=== PATIENT | female | born 1990 | race Caucasian/White ===

== ENCOUNTER 2024-08-19 15:53 | Inpatient (IN) | payer OTHER, SELFPAY ==
[2024-08-19] VITALS (15 sets, daily range): BP systolic 103–122; BP diastolic 62–79; PULSE 70–88; TEMP 36.4–36.6; BMI 36.3
--- NOTE | 2024-08-19 16:34 | LDADM ---
This patient, Macie Young, was admitted to Labor/Delivery/Recovery 103 on 08/19/24 at 15:53. Plans for labor, pain management and were discussed with patient. Patient/family oriented to hospital policies and general routines including ID bracelet, bed and alarms, visiting hours, pain management, procedures, bathroom and other care routines, personal items, smoking policy, room service/diet and guest tray routines, security routines, and visiting hours. Patient/Family are encouraged to report perceived risks to care and to ask questions if they do not understand what they are told or what they should do. See OBIX for further documentation.
--- NOTE | 2024-08-19 17:36 | P.PNAN_ITS ---
Anes - Eval Pre Procedure Procedure: labor epidural Date/Time: 08/19/24 17:36 Surgeon: nel Preop Diagnosis: pain during labor Pre Op Diagnosis: IOL Patient Data Age: 33 Gender: F Height: 1.68 m Weight: 102 kg Last Vital Signs Temp 36.4 C 08/19/24 17:15 Pulse 88 08/19/24 17:31 BP 112/76 08/19/24 17:31 O2 Del Method Room Air 08/19/24 16:33 Allergies Allergy/AdvReac Type Severity Reaction Status Date / Time fluconazole Allergy Rash Verified 07/28/24 13:18 Home Medications Medication Instructions Recorded Confirmed Type vits no.126-ferrous fum 1 tablet PO DAILY 07/28/24 07/28/24 History 28 mg iron-folic acid 800 mcg tablet (Classic ) valacyclovir 500 mg tablet 500 mg PO DAILY 07/28/24 07/28/24 History (Valtrex) Patient hx anesthesia problems: none Family hx anesthesia problems: none Results Review: All pre-operative results and documents have been reviewed as part of the pre- operative evaluation. COUNTS INCLUDE 234 BEDS AT THE [facility] Past Medical History Medical History (Updated 08/19/24 @ 17:37 by Rhonda Stewart CRNA) FH: migraines HSV (herpes simplex virus) anogenital infection IUP (intrauterine ), incidental Obesity (BMI 30-39.9) Family History Family History (Updated 07/28/24 @ 13:27 by Kenna Davila RN) Other No pertinent family history Social History Social History Smoking status: Never smoker Substance use: never Do You Feel Safe in your Home?: Yes Lack of Transportation: No Lack of Food: Never True Current Housing: I Have Housing Concerned About Future Housing: No Difficulty Paying Gas/Electric Bills: No Difficulty Paying for Meds: No Currently Unemployed: No Education: Don't Know Difficulty w/ Childcare or Family Care: No Spiritual care concerns: No Exam Day of Procedure 08/19/24 17:36
[2024-08-19 18:08] LABS: Basophils Percent Auto 0.3 % (0.2-1.2); Eosinophils Absolute Auto 0.1 K/mm3 (0-0.3); Eosinophils Percent Auto 0.6 % (0-4.4); Hematocrit 34.4 % (37.0-47.0); Hemoglobin 11.7 g/dL (12.0-15.0); Immature Granulocyte Absolute 0.06 K/mm3 (0.00-0.031); Immature Granulocyte Percent A 0.6 % (0-0.5); Lymphocytes Absolute Auto 1.79 K/mm3 (0.9-3.2); Lymphocytes Percent Auto 16.7 % (18.3-44.2); Mean Corpuscular Volume 85.4 fl (80-100); Mean Platelet Volume 10.1 fl (7.4-10.4); Monocytes Absolute Auto 0.6 K/mm3 (0.1-0.6); Monocytes Percent Auto 5.8 % (2.6-8.5); Neutrophils Absolute Auto 8.2 K/mm3 (1.3-6.7); Platelet Count Result 259 k/mm3 (150-375); Red Blood Count 4.03 M/mm3 (4.2-5.4); Red Cell Distribution Width 13.3 % (11.5-14.5); White Blood Count 10.7 K/mm3 (4.5-10.0)
[2024-08-19] MEDS: DINOPROSTONE 10 MG VAG INSERT VAGINAL (18:33)
[2024-08-19 18:59] LABS: HIV 1/2 Ab P24 Ag Result Negative (Negative)
[2024-08-19 19:07] LABS: Rapid Plasma Reagin Non-Reactive (NonReactive)
[2024-08-20] VITALS (210 sets, daily range): BP systolic 85–150; BP diastolic 44–93; PULSE 67–147; TEMP 36.2–37; O2SAT 92–100
[2024-08-20] MEDS: LACTATED RINGERS 1,000 ML 125 ML IV CONT (05:39)
[2024-08-20] MEDS: OXYTOCIN 30 UNITS/NS 500 ML 30 UNITS/500 ML BAG 6 UNITS IV CONT (05:41)
[2024-08-20] MEDS: LACTATED RINGERS 1,000 ML 999 ML IV CONT ×3 (09:38→16:04)
--- NOTE | 2024-08-20 12:05 | PM.IMHP ---
H&P: HPI History of Present Illness Date/Time: 08/20/24 0720 Chief Complaint: Here for induction of labor. Narrative: 33 y/o G1 at 40 3/7 weeks here for scheduled induction of labor. Cervidil last night, has been withdrawn, She is receiving oxytocin. GBS neg. has a history of genital HSV, but Macie has never had a sore. essentially uncomplicated. Review of Systems Review of Systems: All systems reviewed & are unremarkable except as noted in HPI and below PMFSH Past Medical History Medical History FH: migraines HSV (herpes simplex virus) anogenital infection IUP (intrauterine ), incidental Obesity (BMI 30-39.9) Family History Family History Other No pertinent family history Social History Social History Smoking status: Never smoker Substance use: never Do You Feel Safe in your Home?: Yes Lack of Transportation: No Lack of Food: Never True Current Housing: I Have Housing Concerned About Future Housing: No Difficulty Paying Gas/Electric Bills: No Difficulty Paying for Meds: No Currently Unemployed: No Education: Don't Know Difficulty w/ Childcare or Family Care: No Spiritual care concerns: No Meds Home Medications and Allergies Home Medications Medication Instructions Recorded Confirmed Type vits no.126-ferrous fum 1 tablet PO DAILY 07/28/24 07/28/24 History 28 mg iron-folic acid 800 mcg tablet (Classic ) valacyclovir 500 mg tablet 500 mg PO DAILY 07/28/24 07/28/24 History (Valtrex) Allergies Allergy/AdvReac Type Severity Reaction Status Date / Time fluconazole Allergy Rash Verified 07/28/24 13:18 Vital Signs Vital Signs - 24 hr 08/19/24 16:33 08/19/24 17:15 08/19/24 17:29 Temperature 36.4 C Pulse Rate 78 Blood Pressure 115/75 Pulse Oximetry Oxygen Delivery Room Air 08/19/24 17:31 08/19/24 17:45 08/19/24 18:01 Temperature Pulse Rate 88 82 79 Blood Pressure 112/76 118/74 106/63 Pulse Oximetry Oxygen Delivery 08/19/24 18:15 08/19/24 18:45 08/19/24 19:00 Temperature Pulse Rate 79 79 71 Blood Pressure 103/68 108/75 118/76 Pulse Oximetry Oxygen Delivery 08/19/24 19:15 08/19/24 19:31 08/19/24 19:45 Temperature Pulse Rate 70 75 75 Blood Pressure 121/79 113/67 120/78 Pulse Oximetry Oxygen Delivery 08/19/24 20:01 08/19/24 20:16 08/19/24 20:31 Temperature Pulse Rate 75 75 77 Blood Pressure 122/75 120/78 108/62 Pulse Oximetry Oxygen Delivery 08/19/24 20:00 08/20/24 00:31 08/20/24 04:59 Temperature 36.6 C Pulse Rate 79 89 Blood Pressure 119/70 131/72 Pulse Oximetry Oxygen Delivery 08/20/24 05:31 08/20/24 06:01 08/20/24 06:31 Temperature Pulse Rate 78 75 83 Blood Pressure 127/77 123/73 112/74 Pulse Oximetry Oxygen Delivery 08/20/24 07:01 08/20/24 07:31 08/20/24 07:30 Temperature 36.4 C Pulse Rate 87 85 Blood Pressure 116/85 121/79 Pulse Oximetry Oxygen Delivery 08/20/24 08:01 08/20/24 08:31 08/20/24 09:00 Temperature Pulse Rate 90 95 88 Blood Pressure 119/78 126/78 130/91 H Pulse Oximetry Oxygen Delivery 08/20/24 09:31 08/20/24 10:00 08/20/24 09:34 Temperature 36.9 C Pulse Rate 86 81 Blood Pressure 109/74 119/86 Pulse Oximetry Oxygen Delivery 08/20/24 10:31 08/20/24 10:41 08/20/24 10:45 Temperature Pulse Rate 79 91 Blood Pressure 116/67 129/83 Pulse Oximetry 100 Oxygen Delivery 08/20/24 10:46 08/20/24 10:47 08/20/24 10:48 Temperature Pulse Rate 83 82 Blood Pressure 120/78 122/84 Pulse Oximetry 100 Oxygen Delivery 08/20/24 10:50 08/20/24 10:51 08/20/24 10:53 Temperature Pulse Rate 87 89 Blood Pressure 130/84 132/84 Pulse Oximetry 100 Oxygen Delivery 08/20/24 10:56 11/21/24 10:58 08/20/24 11:01 Temperature Pulse Rate 89 84 81 Blood Pressure 117/73 121/73 117/71 Pulse Oximetry 100 99 Oxygen Delivery 08/20/24 11:03 08/20/24 11:06 08/20/24 11:08 Temperature Pulse Rate 83 91 89 Blood Pressure 114/72 100/60 99/64 L Pulse Oximetry 100 92 Oxygen Delivery 08/20/24 11:10 08/20/24 11:13 08/20/24 11:16 Temperature Pulse Rate 81 77 73 Blood Pressure 104/64 112/70 114/66 Pulse Oximetry 97 Oxygen Delivery 08/20/24 11:18 08/20/24 11:21 08/20/24 11:23 Temperature Pulse Rate 88 73 77 Blood Pressure 129/63 108/66 108/70 Pulse Oximetry 98 96 Oxygen Delivery 08/20/24 11:26 08/20/24 11:29 08/20/24 11:30 Temperature Pulse Rate 74 87 Blood Pressure 105/68 100/68 Pulse Oximetry 100 Oxygen Delivery 08/20/24 11:31 08/20/24 11:34 08/20/24 11:35 Temperature Pulse Rate 77 80 Blood Pressure 105/70 101/68 Pulse Oximetry 100 Oxygen Delivery 08/20/24 11:36 08/20/24 11:38 08/20/24 11:33 Temperature 36.2 C L Pulse Rate 73 80 Blood Pressure 101/67 101/65 Pulse Oximetry Oxygen Delivery 08/20/24 11:40 08/20/24 11:41 08/20/24 11:45 Temperature Pulse Rate 68 Blood Pressure 99/68 L Pulse Oximetry 99 100 Oxygen Delivery 08/20/24 11:50 08/20/24 11:51 08/20/24 11:55 Temperature Pulse Rate 101 H Blood Pressure 85/64 L Pulse Oximetry 100 99 Oxygen Delivery 08/20/24 12:00 08/20/24 12:05 08/20/24 09:12 Temperature Pulse Rate 80 Blood Pressure 105/63 Pulse Oximetry 100 100 Oxygen Delivery Room Air Exam Const: Orientation/consciousness: patient oriented x3 Other: Well-developed, well-nourished female in no acute distress. Neck: Thyroid: thyroid normal Lymphatic: no lymphadenopathy noted (in neck, axilla or inguinal nodes) Resp: Effort & Inspection: normal respiratory effort Auscultation: clear to auscultation bilaterally Cardio: Rate: regular rate Rhythm: regular rhythm Heart sounds: S1 normal heart sound present and S2 normal heart sound present GI: Other: ABD: Soft, nontender, nondistended, gravid. NST reactive. TOCO: irregular contractions. No guarding or rebound tenderness. No hepatosplenomegaly. : General: Yes no CVA tenderness Other: Cervix 2-3/50/-2. AROM with clear fluid. Vertex. IUPC placed. Back/Spine/Pelvis: Back: no CVA tenderness Skin: General skin exam: normal color and no rashes or lesions noted Neuro: General: patient oriented x3 Extrem: Other: Extremities: nontender with no edema Psych: Mental Status: mental status grossly normal Affect: normal affect H&P: Results Labs Labs: Short CBC 08/19/24 Range/Units 16:08 WBC 10.7 H (4.5-10.0) K/mm3 Hgb 11.7 L (12.0-15.0) g/dL Hct 34.4 L (37.0-47.0) % Plt Count 259 (150-375) k/mm3 Assessment and Plan Assessment and plan (1) Term : Code(s): Z34.90 - Encounter for supervision of normal , unspecified, unspecified trimester Status: Acute Assessment and Plan: A: IUP at 40 3/7 weeks. P: She desires induction of labor. Oxytocin. Anticipate .
--- NOTE | 2024-08-20 12:10 | PM.OBPNLAB ---
Pain Control Date/time seen: 08/20/24 12:10 Comfortable with epidural. AVSS NST reactive TOCO: contractions every 2-4 min Cervix /-2. Continue labor.
[2024-08-20] MEDS: SODIUM CHLORIDE 0.9% IV 300 ML 600 ML I-UTERINE (13:43)
[2024-08-20] MEDS: PHENYLEPHRINE 1,000 MCG/10 ML SYRINGE 100 MCG IV PUSH (15:56)
--- NOTE | 2024-08-20 17:26 | PM.OBPNLAB ---
Pain Control Date/time seen: 08/20/24 17:26 Comfortable AVSS NST reactive TOCO: contractions every 2-3 min Cervix /-2 Continue labor.
[2024-08-20] MEDS: ONDANSETRON INJ 4 MG/2 ML VIAL IV PUSH (19:26)
--- NOTE | 2024-08-20 20:20 | PM.OBPNLAB ---
Pain Control Date/time seen: 08/20/24 20:20 Feeling pressure. Pushing well. AVSS NST reactive with mild variables with pushing. TOCO: contractions every 2-3 min Cervix C/+2 Continue pushing.
[2024-08-20] MEDS: LIDOCAINE HCL 1% LOCAL INJ 20 ML VIAL INFILTRATE (21:07)
[2024-08-20] MEDS: fentaNYL CITRATE INJ (*CRX) 100 MCG/2 ML VIAL IV PUSH (21:19)
[2024-08-20] MEDS: OXYTOCIN 30 UNITS/NS 500 ML 30 UNITS/500 ML BAG 125 UNITS IV CONT (21:20)
--- NOTE | 2024-08-20 21:36 | PM.OBPRVD ---
OB - Vaginal Delivery Note Procedure Delivery date: 08/20/24 Events: Elective Induction of Labor Induction method: Per Cervidil Protocol Delivery augmentation: Rupture of Membranes and Pitocin Delivery monitor: External FHT, External Uterine and Internal Uterine Route of delivery: Episiotomy description: None Laceration Description: Perineal - 2nd Degree Delivery repair: vicryl (3-0) Specimen: Yes (cord blood, vulvar skin mole) Quantitative Blood Loss (ml): 310 Anesthesia type: Local (1% lidocaine) Disposition: PACU Complications: None Narrative: 33 y/o G1 at 40 3/7 weeks gestation who presented to the hospital for induction of labor. Cervidil was placed overnight, then withdrawn the next morning. Oxytocin was administered intravenously. Amniotomy was performed with return of clear fluid. She received an epidural for pain control. Her labor progressed and her cervix dilated completely. She pushed with good effort and delivered the infant's head to the perineum. A loose nuchal cord was reduced and the body delivered. The nose and mouth were bulb suctioned. After a delay, the cord was clamped and cut. The infant was handed off the field. Cord blood was collected. The placenta delivered spontaneously and was grossly normal in appearance. The usual 3 vessel cord was noted. A second degree midline perineal laceration was sustained. This was infiltrated with 10 mL 1% lidocaine for additional analgesia, and reapproximated using 3 0 Vicryl in the usual layered fashion. An 8mm x 6mm flesh colored raised nevus on the right vulva was infiltrated with 1mL 1% lidocaine and excised sharply and passed off to be sent to pathology. A single interrupted suture of the same material was used to reapproximate the wound edges. Excellent hemostasis resulted as did excellent reapproximation of the normal anatomy. Needle and instrument counts were correct. The patient was taken to recovery room in stable condition. The went to the nursery in stable condition. I was present and scrubbed for the entire delivery. Baby Date of : 08/20/24 Time of : 20:59 Gestational Age by Date: 40 gender: Male Weight (pounds): 8 Weight (ounces): 5 presentation: vertex position: Right Occiput Anterior Placenta delivery description: Spontaneous and Normal Configuration Cord Vessel Description: 3 Vessels, Nuchal Cord (x1) and Delayed Cord Clamping score one minute: 8 score five minutes: 8
--- NOTE | 2024-08-20 21:41 | PM.OBDSVD ---
DS: Admitting Diagnosis Discharge Date 08/22/24 <Luisa Flores MD - Last Filed: 08/22/24 11:02> Admitting Diagnosis IUP at 40 3/7 weeks <Damion Heller MD - Last Filed: 08/25/24 04:12> DS: Discharge Diagnosis Discharge Diagnosis (1) (normal spontaneous vaginal delivery): Code(s): O80 - Encounter for full-term uncomplicated delivery <Damion Heller MD - Last Filed: 08/25/24 04:12> Status: Acute <Damion Heller MD - Last Filed: 08/25/24 04:12> OB - DS: Summary OB Procedures : None <Damion Heller MD - Last Filed: 08/25/24 04:12> OB Procedures Intrapartum: Spontaneous Vag Delivery <Damion Heller MD - Last Filed: 08/25/24 04:12> OB Procedures: : None <Damion Heller MD - Last Filed: 08/25/24 04:12> Peripartum Data Laceration Description: Perineal - 2nd Degree <Damion Heller MD - Last Filed: 08/25/24 04:12> Episiotomy description: None <Damion Heller MD - Last Filed: 08/25/24 04:12> Time Spent with Patient Time attestation: Total time spent providing and/or coordinating discharge services: <Damion Heller MD - Last Filed: 08/25/24 04:12> Discharge Plan Discharge Attending physician on discharge: Damion Heller <Damion Heller MD - Last Filed: 08/25/24 04:12> Damion Heller <Luisa Flores MD - Last Filed: 08/22/24 11:02> Consulting providers: Rhonda Stewart; Lupillo Kaur <Damion Heller MD - Last Filed: 08/25/24 04:12> Discharging Clinician: Luisa Flores <Damion Heller MD - Last Filed: 08/25/24 04:12> Luisa Flores <Luisa Flores MD - Last Filed: 08/22/24 11:02> Patient Disposition: Home, Self-Care <Damion Heller MD - Last Filed: 08/25/24 04:12> Activity: pelvic rest <Damion Heller MD - Last Filed: 08/25/24 04:12> pelvic rest <Luisa Flores MD - Last Filed: 08/22/24 11:02> Diet: regular <Damion Heller MD - Last Filed: 08/25/24 04:12> regular <Luisa Flores MD - Last Filed: 08/22/24 11:02> Discharge Instructions: Education: Mom and Baby Guide Given to: Mother Follow-Up: Call your delivering provider's office for an appointment to be seen in: 6 Weeks Mom should come to the [facility] for the follow-up appointment. Appointment Date/Time: August 24, 2024 at 10:00 am What to expect at your follow-up visit: Blood Pressure Check Physical Assessment Call [phone] if you are unable to keep your appointment time. BREAST CARE: * Wear a snug supportive bra. * For engorgement discomfort: Breast Feeding: * Apply warm moist washcloths * Express milk as needed to relieve engorgement * Wear loose clothing Bottle Feeding: * May apply ice packs * For sore nipples: * Identify correct latch-on * Apply warm moist washcloths before and after nursing * Air dry nipples after nursing * May apply Lansinoh cream to nipples PERINEAL CARE: * Until bleeding stops, use your samanta bottle after urinating * Change your pad frequently throughout the day * You may take sitz baths several times a day (fill your bathtub with warm water and soak for 20 minutes.) Do NOT bathe in the water * No tub baths until seen by your physician - You may shower ACTIVITY: * Rest as much as possible. * Do not exercise or lift anything heavier than your baby (such as laundry or other children.) * Avoid stairs or driving as much as possible. * Do not put anything into the vagina. No douching, tampons, or sexual activity until seen by physician. NOTIFY PHYSICIAN IF YOU HAVE ANY QUESTIONS OR IF ANY OF THE FOLLOWING SYMPTOMS OCCUR: * If your vaginal bleeding becomes foul smelling. * If your vaginal bleeding becomes more heavy than a period or if your bleeding changes from pink to bright red. However, you may pass an occasional walnut-sized clot once or twice for the first week . * If you experience a sharp, shooting pain in your calves. * If you discover a hard, reddened area on your breast or if you experience flu-like symptoms. DIET: * Eat regular, well-balanced meals. * Drink plenty of fluids daily. If , drink to thirst. Call or return if temperature above 100.4? F, increased abdominal pain, increased vaginal bleeding or any new problems. <Damion Heller MD - Last Filed: 08/25/24 04:12> Stand Alone Forms: General Discharge Information <Damion Heller MD - Last Filed: 08/25/24 04:12> Follow-up/Referrals: Damion Heller MD [Physician] - 6 Weeks <Damion Heller MD - Last Filed: 08/25/24 04:12> Discharge Medications: New ibuprofen 600 mg tablet 600 mg PO Q6H PRN (Reason: cramps) Qty: 30 0RF ferrous sulfate 325 mg (65 mg iron) tablet 325 mg PO DAILY Qty: 30 0RF Continued Classic 28 mg iron- 800 mcg Tablet 1 tablet PO DAILY Discontinued valacyclovir [Valtrex] 500 mg Tablet 500 mg PO DAILY <Damion Heller MD - Last Filed: 08/25/24 04:12> Date of admission: 08/19/24 15:53 <Damion Heller MD - Last Filed: 08/25/24 04:12> Primary Care Provider: Cheryl,Akua Prado <Damion Heller MD - Last Filed: 08/25/24 04:12> Admitting Provider: Damion Heller <Damion Heller MD - Last Filed: 08/25/24 04:12> Attending physician on admission: Luisa Flores <Damion Heller MD - Last Filed: 08/25/24 04:12> Condition: Stable <Damion Heller MD - Last Filed: 08/25/24 04:12>
[2024-08-20] MEDS: IBUPROFEN 600 MG TABLET PO (22:28)
[2024-08-20] MEDS: BENZOCAINE 20% AER SPR (*SP) 56 GM CAN 1 SPRAY TOPICAL (22:29)
[2024-08-20] MEDS: WITCH HAZEL 40 PADS 1 PAD TOPICAL (22:29)
[2024-08-21 00:45] VITALS: BP 113/68; PULSE 86; RESP 16; TEMP 37.2; O2SAT 100
[2024-08-21] MEDS: ACETAMINOPHEN 325 MG TABLET 650 MG PO ×4 (04:15→22:45)
[2024-08-21] MEDS: IBUPROFEN 600 MG TABLET PO ×4 (04:33→22:45)
[2024-08-21 05:10] VITALS: BP 98/68; PULSE 112; RESP 16; TEMP 36.9; O2SAT 100
[2024-08-21 05:41] LABS: Hematocrit 28.4 % (37.0-47.0); Hemoglobin 9.5 g/dL (12.0-15.0)
[2024-08-21 07:20] VITALS: BP 108/68; PULSE 83; RESP 16; TEMP 36.7; O2SAT 98
[2024-08-21] MEDS: DOCUSATE SODIUM 100 MG CAPSULE PO ×2 (07:57→17:00)
[2024-08-21] MEDS: POLYSACCHARIDE IRON COMPLEX 150 MG CAPSULE PO ×2 (07:57→17:00)
[2024-08-21] MEDS: MULTIVIT/MIN/PREN/FOL AC/IRON TABLET 1 TAB PO (07:57)
--- NOTE | 2024-08-21 08:45 | PC.NURSE ---
Patient called out for assistance. Mom has used the nipple shield off and on at the last 2 feeds. Observed mother latching to the [right] breast in [football] position. He self attached without mom having to shape the breast into a sandwich bite. [was] able to maintain an appropriate latch. Mother [declines] nipple pain/discomfort [throughout feeding]. was still nursing after 10 minutes with occasional stimulation. Encouraged mother to keep awake and nursing at the breast for 15 minutes. If desires 2nd breast and mother needs assistance, she will call out. Mother taught to listen for swallowing during feedings. Reviewed using the blue feeding sheet to record time and duration of feeding. Mother voiced understanding of the education shared, to call for assistance if the infant does not latch or if there is discomfort with . name/number on communication board. Reported to the Primary RN.?
--- NOTE | 2024-08-21 08:55 | PM.OBPNVD ---
OB - PN: Subj Subjective Date/time seen: 08/21/24 08:55 Narrative: Pain OK. OB - PN: Obj Data Labs 08/21/24 04:37 Labs: Laboratory Results - last 24 hr 08/21/24 04:37 Hgb 9.5 L Hct 28.4 L OB - PN A/P Plan day: 1 Comments: A: PPD#1, doing well. Would like circumcision for son. P: Reviewed circ. Routine care. Exam Psych: Other: AVSS ABD soft, nontender, fundus firm EXT nontender
--- NOTE | 2024-08-21 09:39 | WPDANLDPN2 ---
Anes-Prog Note L&D Date/Time: 08/21/24 09:39 Comfortable throughout: labor Neuraxial method: epidural Epidural/Spinal procedure site: tender Neuro status: Neuro function grossly intact. Cardiovascular status: normal Respiratory status: normal Airway patency: baseline Mental status: baseline Post-Op hydration status: normal Vital Signs: Last Vital Signs Temp 36.7 C 08/21/24 07:20 Pulse 83 08/21/24 07:20 Resp 16 08/21/24 07:20 BP 108/68 08/21/24 07:20 Pulse Ox 98 08/21/24 07:20 O2 Del Method Room Air 08/20/24 09:12 Pain score (VAS): 310 I/O: Intake & Output 08/20/24 08/21/24 08/21/24 23:59 07:59 15:59 Intake Total 500 Output Total 1210 700 Balance -710 -700 Post-procedural complaints: none Patient feedback: Patient satisfied with anesthetic care. patient reports she was relatively comfortable during contractions, but felt sharp pain during delivery. epidural was mostly 1 sided.
[2024-08-21 11:38] VITALS: BP 105/65; PULSE 94; RESP 16; TEMP 36.3; O2SAT 99
--- NOTE | 2024-08-21 14:40 | PC.NURSE ---
1400- Went to check in with patient to see if she was having success with the last and current feedings. She fed baby independently at 1130 but said it wasn't quite as consistent as the first feeding we did together. Encouraged that this is typical with newborns, they do good at some feeds and seem to forget what to do at the next feed. We tried to put baby to breast but he was circumcised and is very sleepy. Mom will keep him skin to skin and try again soon. Reported to primary RN. 1440- Stopped back by patient room to see if baby woke up to eat. Mom had been doing some skin to skin and baby was spitty. We burped him a few times and attempted to latch but he seemed to be working up some mucous or Tylenol. Encouraged mom to give him a little time to work through the spit up and then try again. Baby is looking jaundiced and we discussed jaundice and how the primary RN will be checking up on his levels. Mom will call out for assistance as needed. Reported to primary RN.
[2024-08-21 19:22] VITALS: BP 108/73; PULSE 86; RESP 20; TEMP 36.6; O2SAT 99
[2024-08-22] MEDS: ACETAMINOPHEN 325 MG TABLET 650 MG PO ×2 (04:10→10:23)
[2024-08-22] MEDS: IBUPROFEN 600 MG TABLET PO ×2 (04:10→10:23)
[2024-08-22 07:05] VITALS: BP 110/73; PULSE 77; RESP 16; TEMP 36.7; O2SAT 98
--- NOTE | 2024-08-22 10:00 | PC.NURSE ---
Breast pump provided due to in level 2 nursery. Instructions given on cleaning, care, usage, that there should be no pain, pumping schedule for milk production, collection, and storage of human milk. Patient was assessed for correct placement, flange size, to pump for comfort and nipple stretching/stimulation for adequate milk production every 3 hours (8 times in 24 hours) 1-2 times at night. Parents are encouraged to record the pumping schedule on the feeding sheet.?Mother voiced understanding of the education shared along with mom/baby guide and the pump measurement, flange fit handout for additional resource information. Reported to the Primary RN.
[2024-08-22] MEDS: POLYSACCHARIDE IRON COMPLEX 150 MG CAPSULE PO (10:23)
[2024-08-22] MEDS: MULTIVIT/MIN/PREN/FOL AC/IRON TABLET 1 TAB PO (10:23)
[2024-08-22] MEDS: DOCUSATE SODIUM 100 MG CAPSULE PO (10:23)
--- NOTE | 2024-08-22 11:00 | PM.OBPNVD ---
OB - PN: Subj Subjective Date/time seen: 08/22/24 11:00 Patient comments: other (c/o migraine-took imitrex and improved) baby status: other (moved to level II nursery) OB - PN: Obj Data Labs 08/21/24 04:37 OB - PN A/P Plan day: 2 Plan: routine care and discharge home (dc to no care bed) Comments: If migraine persists, will give Toradol or demerol Time Spent With Patient Time: Total time spent is greater than 50% in coordination of care (as documented) at patient's floor/unit and/or counseling patient: Exam Narrative: fundus firm, nt Const: General: no acute distress
== END 2024-08-22 13:13 | disposition home or self-care (01) | DRG 768 ==
LOC: ANHLDR 08-20 21:42 → ANHOB2 08-22 11:09 → ANHLDR 08-24 11:00 → ANHOB2 08-24 11:00
PROVIDERS: Admitting Provider Obstetrics & Gynecology; PCP Family Medicine; Visit Provider Obstetrics & Gynecology Gynecology
DX: O99.214 Obesity complicating childbirth (principal); Z37.0 Single live birth; O70.1 Second degree perineal laceration during delivery; O69.81X0 Labor and delivery complicated by cord around neck, without compression, not applicable or unspecified; Z3A.40 40 weeks gestation of pregnancy; D28.0 Benign neoplasm of vulva
CPT/HCPCS: 36415; 85014; 85018; 85025; 86592; 86703; 86850; 86900; 86901; 88305; A9270; G0432; J2003; J2371; J2405; J2590; J2795; J3010; J7030; J7120